=== PATIENT | female | born 1985 | race American Indian/Alaskan Native ===

== ENCOUNTER 2017-11-08 22:17 | Emergency (ER) | payer SELFPAY ==
[2017-11-08 23:45] VITALS: BP 121/72
[2017-11-08 23:58] LABS: Basophils % (Auto) 0.7 % (0.0-1.8); Eosinophils # (Auto) 0.1 K/mm3 (0.0-0.4); Hematocrit 40.4 % (30.3-42.9); Hemoglobin 13.4 gm/dl (10.1-14.3); Lymphocytes # (Auto) 2.6 K/mm3 (1.2-5.4); Lymphocytes % (Auto) 44.4 % (13.4-35.0); Mean Corpuscular HGB Conc 33 % (30-34); Mean Corpuscular Hemoglobin 29 pg (28-32); Mean Corpuscular Volume 86 fl (79-97); Monocytes # (Auto) 0.4 K/mm3 (0.0-0.8); Platelet Count 291 K/mm3 (140-440); Red Blood Count 4.68 M/mm3 (3.65-5.03); Red Cell Distribution Width 13.1 % (13.2-15.2)
[2017-11-09 00:08] LABS: Bilirubin,Urine NEG (Negative); Blood,Urine NEG (Negative); Color,Urine Yellow (Yellow); Mucus,Urine FEW /HPF; Protein,Urine <15 mg/dL mg/dL (Negative); Urobilinogen,Urine < 2.0 mg/dL (<2.0)
[2017-11-09 00:11] LABS: BUN/Creatinine Ratio 18; Blood Urea Nitrogen 14 mg/dL (7-17); Calcium 8.6 mg/dL (8.4-10.2); Hemolysis Index 5
--- NOTE | 2017-11-09 00:32 | Cat Scan Report ---
FINAL REPORT EXAM: CT HEAD/BRAIN WO CON HISTORY: worse LARA TECHNIQUE: CT was performed from the foramen magnum through the vertex in the axial plane without the use of intravenous contrast. PRIORS: None. FINDINGS: The louis/white matter attenuation pattern is normal. There is no mass lesion or mass effect. There are no abnormal extra-axial fluid collections. There is no evidence of acute intracranial hemorrhage or infarct. The ventricles are of normal size and configuration. The skull and orbits are unremarkable. The visualized paranasal sinuses are clear. IMPRESSION: Normal CT of the head.
[2017-11-09] MEDS ORDERED: NACL 0.9% 1000 ML 1,000 ML IV ONE (00:34)
[2017-11-09] MEDS ORDERED: HALDOL IV ONE (00:34)
[2017-11-09] MEDS ORDERED: TORADOL IV ONE (00:34)
[2017-11-09] MEDS ORDERED: TYLENOL PO ONE (00:34)
--- NOTE | 2017-11-09 01:39 | Emergency Department Report ---
ED Headache HPI - General Chief Complaint: Headache Stated Complaint: HEADACHE AND THROWING UP Time Seen by Provider: 11/09/17 00:04 - History of Present Illness Initial Comments: Progressive onset left sided throbbing headache that has been intermittent for the past 2 months, but worse in the past 2 weeks. Associated with photophobia. Associated with nausea and intermittent vomiting. Denies vision changes, numbness, weakness, worsening headache with lying flat. Afebrile. Allergies/Adverse Reactions: Allergies No Known Allergies Allergy (Unverified 11/08/17 23:08) ED Review of Systems ROS: Stated complaint: HEADACHE AND THROWING UP Other details as noted in HPI Comment: All other systems reviewed and negative Gastrointestinal: nausea, vomiting Neurological: headache ED Past Medical Hx - Past Medical History Previous Medical History?: No - Surgical History Past Surgical History?: Yes Additional Surgical History: cyst, hysterectomy - Social History Smoking Status: Never Smoker Substance Use Type: Alcohol ED Physical Exam - General Limitations: No Limitations General appearance: alert, in no apparent distress - Head Head exam: Present: atraumatic, normocephalic - Eye Eye exam: Present: normal appearance - ENT ENT exam: Present: mucous membranes moist - Neck Neck exam: Present: normal inspection - Respiratory Respiratory exam: Present: normal lung sounds bilaterally. Absent: respiratory distress - Cardiovascular Cardiovascular Exam: Present: regular rate, normal rhythm. Absent: systolic murmur, diastolic murmur, rubs, gallop - GI/Abdominal GI/Abdominal exam: Present: soft. Absent: distended, tenderness - Extremities Exam Extremities exam: Present: normal inspection - Back Exam Back exam: Present: normal inspection - Neurological Exam Neurological exam: Present: alert, oriented X3, CN II-XII intact, normal gait, other (gross extremity strength 5/5, bilateral extremity sensation intact) - Psychiatric Psychiatric exam: Present: normal affect, normal mood - Skin Skin exam: Present: warm, dry, intact, normal color. Absent: rash ED Course Vital Signs 11/08/17 11/08/17 22:39 23:45 Temperature 98.8 F 99 F Pulse Rate 85 80 Respiratory 16 18 Rate Blood Pressure 119/79 Blood Pressure 121/72 [Left] O2 Sat by Pulse 99 99 Oximetry - Reevaluation(s) Reevaluation #1: Headache resolved 11/09/17 02:26 ED Medical Decision Making - Lab Data Result diagrams: 11/08/17 23:41 11/08/17 23:41 - Medical Decision Making 31-year-old female withpast medical history represents to the ER with acute on chronic headache. Vitals are stable. Patient's well-appearing. No focal neuro deficit on exam. Lab work and CT imaging were unremarkable. Patient is given a headache cocktail with improvement of symptoms. Low concern for intracranial hemorrhage given prolonged symptoms and well appearance of the patient at this point in time. Patient has been educated on headache hygiene. She is cleared for discharge. - Differential Diagnosis tension versus cluster versus migraine headache, ICH, meningitis Critical care attestation.: If time is entered above; I have spent that time in minutes in the direct care of this critically ill patient, excluding procedure time. ED Disposition Clinical Impression: Headache Disposition: DC-01 TO HOME OR SELFCARE Is pt being admited?: No Condition: Stable Instructions: Migraine Headache (ED) Additional Instructions: Take ibuprofen or Tylenol for management of her headache. If the headaches persist, please follow up with your family doctor for reevaluation. Referrals: TRACY DIAZ MD [Primary Care Provider] - 3-5 Days
== END 2017-11-09 02:41 | disposition home or self-care (01) ==
LOC: ED 22:17
DX: R51 Headache (principal); R11.2 Nausea with vomiting, unspecified
CPT/HCPCS: 36415; 70450; 80048; 81001; 85025; 93005; 93010; 96361; 96374; 96375; 99284; J1630; J1885; J7030